=== PATIENT | female | born 1950 ===

== ENCOUNTER 2019-03-17 06:00 | Day surgery (SDC) | payer OTHER ==
[~2019-03-17 06:00] MED LIST: ZOCOR20 MG PO
== END 2019-03-17 16:15 | disposition left against medical advice (07) ==
LOC: CIR.AMB 06:00 → ADM 12:45 → CIR.AMB 12:45
DX: S62.326B Displaced fracture of shaft of fifth metacarpal bone, right hand, initial encounter for open fracture (principal); M24.541 Contracture, right hand